=== PATIENT | male | born 1970 | race Caucasian/White ===

== ENCOUNTER 2018-09-30 13:26 | Inpatient (IN) | payer OTHER ==
[2018-09-30] MEDS ORDERED: Nitroglycerin 50 MG/250 ML BOT 250 ML ONE (13:59)
--- NOTE | 2018-09-30 14:07 | RAD ---
SINGLE VIEW OF THE CHEST: COMPARISON: None. HISTORY: Chest pain. History of atrial fibrillation. FINDINGS: Single view of the chest shows a normal sized cardiomediastinal silhouette. There is no evidence of c onsolidation, mass, or pleural effusion. The bones are unremarkable. IMPRESSION: No evidence of acute cardiopulmonary disease. POS: C
[2018-09-30 14:26] LABS: #Eosinphils 0.1 thou/uL (0.0-0.7); #Lymphocytes 2.3 thou/uL (1.20-3.40); #Monocytes 0.7 thou/uL (0.11-0.59); #Neutrophils 2.4 thou/uL (1.40-6.50); %Basophils 0.5 % (0.0-1.0); %Eosinophils 1.1 % (0.0-10.0); %Lymphocytes 42.3 % (21.0-51.0); %Monocytes 12.3 % (0.0-10.0); %Neutrophils 43.7 % (42.0-75.0); Hemoglobin 16.1 g/dL (14.0-18.0); Mean Corpuscular HGB CONC 32.8 g/dL (32.0-36.0); Mean Corpuscular Hemoglobin 30.7 pg (27.0-31.0); Mean Corpuscular Volume 93.5 fL (78.0-98.0); Mean Platelet Volume 8.5 fL (7.4-10.4); Platelet Count 232 thou/uL (130-400); RBC Distribution Width 12.1 % (11.5-14.5); Red Blood Cell (RBC) Count 5.26 mill/uL (4.70-6.10); White Blood Cell (WBC) Count 5.4 thou/uL (4.8-10.8)
[2018-09-30] MEDS ORDERED: Morphine 4 MG/ML VIAL ONE (14:32)
[2018-09-30 14:41] LABS: ALT (SGPT) 39 U/L (8-55); AST (SGOT) 25 U/L (5-34); Albumin 4.4 g/dL (3.5-5.0); Alkaline Phosphatase 84 U/L (40-150); Anion Gap 14 mmol/L (10-20); BUN (Urea Nitrogen) 11 mg/dL (8.9-20.6); Bilirubin, Total 1.6 mg/dL (0.2-1.2); Calc. Creatinine Clearance 0 mL/min (70-130); Calcium 9.9 mg/dL (7.8-10.44); Carbon Dioxide 24 mmol/L (22-29); Chloride 108 mmol/L (98-107); Estimated GFR-MDRD Greater than 90; Glucose 91 mg/dL (70-105); Potassium 4.1 mmol/L (3.5-5.1); Protein, Total 7.4 g/dL (6.0-8.3); Sodium 142 mmol/L (136-145)
[2018-09-30 17:56] LABS: Troponin I Less than 0.010 ng/mL (< 0.028)
[2018-09-30] MEDS ORDERED: hydrALAZINE 20 MG/ML VIAL ONE (18:44)
[2018-09-30] MEDS ORDERED: Ondansetron PF 4 MG/2 ML Vial IVP PRN (18:49)
[2018-09-30] MEDS ORDERED: Acetaminophen 650 MG Suppository PR PRN (18:49)
[2018-09-30] MEDS ORDERED: Bisacodyl 5 MG TAB PO PRN (18:49)
[2018-09-30] MEDS ORDERED: Acetaminophen 325 MG TAB PO PRN (18:49)
[2018-09-30] MEDS ORDERED: hydrALAZINE 20 MG/ML VIAL SLOW IVP PRN (18:52)
[2018-09-30] MEDS ORDERED: Labetalol HCl 100 MG/20 ML VIAL SLOW IVP PRN (18:53)
[2018-09-30] MEDS ORDERED: Morphine 4 MG/ML VIAL SLOW IVP PRN (18:53)
[2018-09-30] MEDS ORDERED: Aspirin 325 MG TAB PO SCH (19:00)
[2018-09-30] MEDS ORDERED: HumaLOG 300 UNITS/3 ML VIAL SC PRN (19:07)
[2018-09-30] MEDS ORDERED: Dextrose 50% Abboject 50 ML SYRINGE SLOW IVP PRN (19:07)
[2018-09-30] MEDS ORDERED: Dextrose 5% in Water 1,000 ML IV PRN (19:07)
[2018-09-30] MEDS ORDERED: cloNIDine 0.1 MG TAB PO PRN (19:26)
[2018-09-30] MEDS ORDERED: cloNIDine 0.1 MG TAB ONE (19:30)
[2018-09-30] MEDS: cloNIDine 0.2 MG TAB PO SCH (19:37)
--- NOTE | 2018-09-30 19:39 | HP ---
PRIMARY CARE PROVIDER: None. CHIEF COMPLAINT: Chest pain. HISTORY OF PRESENT ILLNESS: Mr. Shi is a pleasant 48-year-old gentleman, who was seen at [facility] on September 30, 2018. He is a jail inmate. He reports that he had chest pain 3 weeks ago. The pain was in the retrosternal region. He was supposed to go for a stress test and echocardiogram. He was supposed to stop diltiazem, but apparently diltiazem was not stopped, therefore he could not go for the test. He reports that he had recurrence of the pain around 7 a.m. today. He describes it as retrosternal, sharp, radiating to his neck, 7/10 at its worst, accompanied by lightheadedness, shortness of breath, and diaphoresis. He denies any abdominal pain. He endorses nausea. He denies any cough or fever. REVIEW OF SYSTEMS: All other systems reviewed and found to be negative. PAST MEDICAL HISTORY: Myocardial infarction, atrial fibrillation, diabetes mellitus type 2, kidney nodules, and hepatitis C. PAST SURGICAL HISTORY: Left elbow surgery, left shoulder surgery, and right knee surgery. SOCIAL HISTORY: The patient reports using methamphetamines and cocaine in the past, but stopped their use. He is an ex-smoker. He denies alcohol use. FAMILY HISTORY: Significant for myocardial infarction in both parents. His brother had coronary artery bypass graft. ALLERGIES: DEMEROL. CURRENT MEDICATIONS: 1. Allopurinol 300 mg daily. 2. Aspirin 81 mg daily. 3. Atorvastatin 20 mg daily. 4. Diltiazem 180 mg daily. 5. Divalproex 500 mg 2 times a day. 6. Furosemide 40 mg 2 times a day. 7. Isosorbide mononitrate 30 mg daily. 8. Lisinopril 40 mg daily. 9. Loratadine 10 mg daily. 10. Nitroglycerin 0.2 mg/hour transdermal patch. 11. Artificial Tears 2 drops to each eye once daily. 12. Potassium chloride 20 mEq daily. 13. Terazosin 2 mg daily. 14. Hydralazine 25 mg 3 times a day. 15. Metformin 500 mg 2 times a day. 16. Nitroglycerin p.r.n. PHYSICAL EXAMINATION: GENERAL: On examination, Mr. Shi is awake and alert, in mild distress. He is obese. VITAL SIGNS: Blood pressure is 162/109, pulse 75, respiratory rate 21, and oxygen saturation 95% on room air. He is afebrile. EYES: No scleral icterus. No conjunctival pallor. ENT: Moist mucosal membranes. No oropharyngeal erythema or exudates. NECK: Supple and nontender. Trachea is midline. RESPIRATORY: Accessory muscles of breathing are not active. Chest wall movements are symmetric bilaterally. Lungs are clear to auscultation without wheeze, rhonchi, or crepitations. CARDIOVASCULAR: S1 and S2 are heard, regular. Peripheral pulses palpable. No carotid bruit. No pericardial rub. ABDOMEN: Distended and nontender. Bowel sounds heard. No hepatomegaly. No splenomegaly. NEUROLOGIC: Cranial nerves 2 through 12 are intact. He has right upper extremity tremor. MUSCULOSKELETAL: Power is 5/5 in all 4 extremities. SKIN: Multiple tattoos. LYMPHATIC: No cervical lymphadenopathy. PSYCHIATRIC: Normal mood. Normal affect. The patient is oriented to person, place, and time. LABORATORY DATA: Mr. Shi's labs and investigations were reviewed. I reviewed his electrocardiogram, which shows normal sinus rhythm, no ST changes to suggest an acute coronary syndrome. I also reviewed his chest x-ray, which does not show any pulmonary infiltrates. He has an unremarkable CBC. D-dimer less than 0.27. Elevated total bilirubin of 1.6, elevated chloride of 108, otherwise unremarkable comprehensive metabolic profile. Troponin-I that is negative x2. ASSESSMENT AND PLAN: Mr. Shi is a pleasant 48-year-old gentleman, who was seen at [facility] on September 30, 2018. His problem list includes: 1. Chest pain: Mr. Shi is presenting with chest pain. He has significant risk factors for coronary artery disease. He will be admitted to the hospital for further management. We will check stress test. We will also check urine drug screen to look for any recreational drugs. Pulmonary embolism has been ruled out with negative D-dimer. 2. Hypertensive urgency: Mr. Shi is presenting with hypertensive urgency. When he initially presented to the emergency room, his blood pressure was 202/124. We will start him on p.r.n. medications to bring the blood pressure down. 3. Atrial fibrillation: Mr. Shi has a history of atrial fibrillation. He is currently in normal sinus rhythm. We will continue home medications. 4. Diabetes mellitus type 2: We will start Accu-Cheks and insulin sliding scale. Many thanks for allowing me to participate in your patient's care. Please feel free to contact me with any questions or concerns. LEVEL OF RISK: High. LEVEL OF COMPLEXITY: High. Job ID: [id number]
[2018-09-30 20:54] LABS: Troponin I Less than 0.010 ng/mL (< 0.028)
[2018-09-30 23:09] VITALS: BMI 43.9
[2018-09-30 23:12] LABS: Amphetamine Not Detected (NotDetected); Barbiturates Screen Not Detected (NotDetected); Benzodiazepine Screen Not Detected (NotDetected); Cocaine Metabolite Screen Not Detected (NotDetected); Medtox Control Line Valid? VALID (VALID); Medtox Reader # READER 1; Methadone Not Detected (NotDetected); Methamphetamine Not Detected (NotDetected); Opiate Screen Detected (NotDetected); Oxycodone Screen Not Detected (NotDetected); Phencyclidine (PCP) Not Detected (NotDetected); THC/Cannabinoid Screen Not Detected (NotDetected); Tricyclic Screen Not Detected (NotDetected)
[2018-10-01 03:37] LABS: #Eosinphils 0.1 thou/uL (0.0-0.7); #Lymphocytes 2.2 thou/uL (1.20-3.40); #Neutrophils 5.7 thou/uL (1.40-6.50); %Basophils 0.2 % (0.0-1.0); %Eosinophils 0.6 % (0.0-10.0); %Lymphocytes 24.6 % (21.0-51.0); %Monocytes 11.5 % (0.0-10.0); %Neutrophils 63.1 % (42.0-75.0); Hemoglobin 15.2 g/dL (14.0-18.0); Mean Corpuscular HGB CONC 32.5 g/dL (32.0-36.0); Mean Corpuscular Hemoglobin 30.6 pg (27.0-31.0); Mean Corpuscular Volume 94.1 fL (78.0-98.0); Mean Platelet Volume 8.3 fL (7.4-10.4); Platelet Count 218 thou/uL (130-400); RBC Distribution Width 12.3 % (11.5-14.5); Red Blood Cell (RBC) Count 4.98 mill/uL (4.70-6.10)
[2018-10-01 04:00] LABS: Anion Gap 10 mmol/L (10-20); BUN (Urea Nitrogen) 11 mg/dL (8.9-20.6); Calc. Creatinine Clearance 230 mL/min (70-130); Calcium 9.3 mg/dL (7.8-10.44); Carbon Dioxide 27 mmol/L (22-29); Chloride 106 mmol/L (98-107); Estimated GFR-MDRD Greater than 90; Glucose 108 mg/dL (70-105); Potassium 3.9 mmol/L (3.5-5.1); Sodium 139 mmol/L (136-145)
[2018-10-01] MEDS ORDERED: cloNIDine 0.1 MG TAB ONE (04:18)
[2018-10-01] MEDS ORDERED: hydrALAZINE 20 MG/ML VIAL ONE (04:18)
[2018-10-01] MEDS: Nitroglycerin 0.4 MG TAB (25 Tab Bottle) PO PRN ×2 (04:18→04:23)
[2018-10-01] MEDS ORDERED: Morphine 4 MG/ML VIAL ONE (04:18)
[2018-10-01] MEDS ORDERED: Aspirin 325 mg Enteric Coated Tablet PO SCH (09:00)
[2018-10-01] MEDS ORDERED: Enoxaparin Sodium 40 MG/0.4 ML SYRINGE SC SCH (09:00)
[2018-10-01] MEDS ORDERED: Sodium Chloride 0.9% 10 ML ONE (09:08)
[2018-10-01] MEDS: cloNIDine 0.2 MG TAB PO SCH (09:22)
--- NOTE | 2018-10-01 10:12 | PDOC.PN ---
- Subjective Encounter Start Date: 10/01/18 Encounter Start Time: 11:50 Subjective: Patient without further chest pain. He has had some bradycardic episodes, -: but asymptomatic into the 50s. Stress test done this morning, report -: pending. - Objective MAR Reviewed: Yes Vital Signs & Weight: Vital Signs (12 hours) Temp Pulse Resp BP BP Pulse Ox 10/01/18 09:55 97 10/01/18 09:22 162/88 H 10/01/18 00:45 97.8 F 75 20 163/108 H 97 Weight Weight 341 lb 14.991 oz Result Diagrams: 10/01/18 03:23 10/01/18 03:23 Additional Labs: Accuchecks 10/01/18 09/30/18 08:11 22:46 POC Glucose 106 106 Phys Exam - Physical Examination Constitutional: NAD HEENT: moist MMs Respiratory: no wheezing, no rales, no rhonchi Cardiovascular: RRR, no significant murmur Gastrointestinal: soft, positive bowel sounds Musculoskeletal: no edema Neurological: non-focal, moves all 4 limbs Psychiatric: normal affect, A&O x 3 Dx/Plan (1) Chest pain Code(s): R07.9 - CHEST PAIN, UNSPECIFIED Status: Resolved (2) CAD (coronary artery disease) Code(s): I25.10 - ATHSCL HEART DISEASE OF [place] CORONARY ARTERY W/O ANG PCTRS Status: Chronic Qualifiers: Coronary Disease-Associated Artery/Lesion type: [place] artery Comment: by history (3) Paroxysmal atrial fibrillation Code(s): I48.0 - PAROXYSMAL ATRIAL FIBRILLATION Status: Chronic Comment: currently in NSR (4) Diabetes mellitus type 2 in obese Code(s): E11.69 - TYPE 2 DIABETES MELLITUS WITH OTHER SPECIFIED COMPLICATION; E66.9 - OBESITY, UNSPECIFIED Status: Chronic Comment: FSBS achs and ISS as needed (5) Hepatitis C Code(s): B19.20 - UNSPECIFIED VIRAL HEPATITIS C WITHOUT HEPATIC COMA Status: Chronic Qualifiers: Viral hepatitis chronicity: chronic (6) Hypertensive urgency Code(s): I16.0 - HYPERTENSIVE URGENCY Status: Acute Comment: BP improved in hospital, still running high - Plan cont current plan of care stress test today, cardiology if positive -: Will need to stop diltiazem due to bradycardia -: Will have to increase other BP meds. * . - Discharge Day Encounter end time: 12:00
--- NOTE | 2018-10-01 15:00 | NM ---
STRESS ONLY MYOCARDIAL PERFUSION EVALUATION: INDICATIONS: Chest pain. RADIOPHARMACEUTICAL: Technetium 99m sestamibi 33 millicuries IV with stress. FINDINGS: There is mild left ventricular dilatation. There is no myocardial perfusion defect. There is normal wall motion and thickening. Estimated LVEF is 80%. IMPRESSION: 1. Normal stress myocardial perfusion evaluation. 2. Mild left ventricular dilatation. POS: [facility]
[2018-10-01] MEDS ORDERED: Regadenoson 0.4 MG/5 ML SYRINGE ONE (16:04)
[2018-10-01 16:12] VITALS: BP 127/72; TEMP 96.7
--- NOTE | 2018-10-02 04:25 | DIS ---
DATE OF ADMISSION: 09/30/2018 DATE OF DISCHARGE: 10/01/2018 PRIMARY CARE PHYSICIAN: The patient is an inmate. REASON FOR ADMISSION: Chest pain. DIAGNOSES AT DISCHARGE: 1. Chest pain, resolved, noncardiac. 2. History of coronary artery disease. 3. Paroxysmal atrial fibrillation, currently in normal sinus rhythm with some bradycardia. 4. Diabetes mellitus type 2. 5. Hepatitis C. 6. Hypertensive urgency, resolved. PROCEDURES: Nuclear medicine stress test showing an ejection fraction of 80%. No evidence of ischemia. CONSULTATIONS: None. SUMMARY OF HOSPITAL COURSE: This is a 48-year-old male inmate with a history of previous myocardial infarction, atrial fibrillation, diabetes mellitus type 2, and hepatitis C. He reportedly had some chest pain about 3 weeks ago and on the day of admission, he had substernal chest pain. He was supposed to get a stress test and echocardiogram from [facility], however for some reason, his diltiazem was not held and so he was unable to get it. The patient was admitted to the hospital. He did have severely elevated blood pressures that improves, although he remained elevated during hospitalization. He remained chest pain-free during hospitalization. He had a nuclear medicine stress test, which showed normal ejection fraction and negative for any evidence of ischemia. The patient did have some bradycardia during the hospitalization down to 50s, but this was asymptomatic. He is being discharged back to [facility]. DISCHARGE MANAGEMENT: Discharged back to [facility]. ACTIVITY: As tolerated. DIET: Healthy heart low-sodium diet. MEDICATIONS: 1. Hydralazine increased to 50 mg 3 times a day. 2. Omeprazole 20 mg daily. 3. Resume all other home medicines, allopurinol 300 mg at night. 4. Aspirin 81 mg daily. 5. Atorvastatin 20 mg at night. 6. Depakote ER 500 mg twice a day. 7. Furosemide 40 mg twice a day. 8. Isosorbide mononitrate 30 mg daily. 9. Lisinopril 40 mg daily. 10. Loratadine 10 mg daily. 11. Metformin 500 mg twice a day. 12. Nitroglycerin patch. 13. Artificial Tears as needed. 14. Potassium chloride 20 mEq daily. 15. Terazosin 2 mg at night. 16. The patient is to stop his diltiazem. The patient is to follow up with the [facility]. Job ID: [id number]
== END 2018-10-01 20:16 | DRG 313 ==
LOC: ERS 13:26 → EEVIPCON 13:26 → ERHOLD 15:54 → 2NO 10-01 08:12
PROVIDERS: ADMIT Internal Medicine; ATTEND Internal Medicine
DX: R07.9 Chest pain, unspecified (principal); E11.9 Type 2 diabetes mellitus without complications; B19.20 Unspecified viral hepatitis C without hepatic coma; I16.0 Hypertensive urgency; I25.10 Atherosclerotic heart disease of native coronary artery without angina pectoris; I48.0 Paroxysmal atrial fibrillation; I25.2 Old myocardial infarction; Z98.890 Other specified postprocedural states; Z87.891 Personal history of nicotine dependence; Z79.82 Long term (current) use of aspirin; Z79.84 Long term (current) use of oral hypoglycemic drugs; Z79.899 Other long term (current) drug therapy
CPT/HCPCS: 36415; 36416; 71045; 78452; 80048; 80053; 80306; 84484; 85025; 85379; 93005; 93017; 94760; A9500; J0360; J1650; J2270; J2785; J3490

== ENCOUNTER 2018-10-31 08:01 | Emergency (ER) | payer OTHER ==
[2018-10-31 08:36] LABS: Hemoglobin 16.3 g/dL (14.0-18.0); Mean Corpuscular HGB CONC 34.8 g/dL (32.0-36.0); Mean Corpuscular Hemoglobin 31.6 pg (27.0-31.0); Mean Corpuscular Volume 90.9 fL (78.0-98.0); Mean Platelet Volume 8.8 fL (7.4-10.4); Platelet Count 205 thou/uL (130-400); RBC Distribution Width 11.5 % (11.5-14.5); Red Blood Cell (RBC) Count 5.17 mill/uL (4.70-6.10); White Blood Cell (WBC) Count 5.9 thou/uL (4.8-10.8)
--- NOTE | 2018-10-31 08:37 | RAD ---
EXAM: Portable chest PROVIDED CLINICAL HISTORY: Chest pain COMPARISON: 09/30/2018 FINDINGS: Cardiac and mediastinal silhouette is within normal limits. No focal consolidation, pleural fluid or pneumothorax evident. IMPRESSION: No evidence for an acute cardiopulmonary process.
[2018-10-31 08:53] LABS: ALT (SGPT) 55 U/L (8-55); AST (SGOT) 43 U/L (5-34); Albumin 4.1 g/dL (3.5-5.0); Alkaline Phosphatase 82 U/L (40-150); Anion Gap 13 mmol/L (10-20); BUN (Urea Nitrogen) 9 mg/dL (8.9-20.6); Bilirubin, Total 0.9 mg/dL (0.2-1.2); CK (CPK) 124 U/L (30-200); Calc. Creatinine Clearance 0 mL/min (70-130); Calcium 9.4 mg/dL (7.8-10.44); Carbon Dioxide 27 mmol/L (22-29); Chloride 106 mmol/L (98-107); Estimated GFR-MDRD 84; Globulin 3.3 g/dL (2.4-3.5); Glucose 78 mg/dL (70-105); Lipase 15 U/L (8-78); Potassium 4.7 mmol/L (3.5-5.1); Protein, Total 7.4 g/dL (6.0-8.3); Sodium 141 mmol/L (136-145)
[2018-10-31] MEDS ORDERED: Nitroglycerin 0.4 MG TAB 1 EACH ONE (09:17)
[2018-10-31] MEDS ORDERED: Ondansetron ODT 4 MG TAB ONE (11:19)
== END 2018-10-31 12:03 | disposition short-term general hospital (02) ==
LOC: ERS 08:01 → EEVIPCON 08:01 → ERS 12:03
DX: R07.9 Chest pain, unspecified (principal); I25.10 Atherosclerotic heart disease of native coronary artery without angina pectoris; I48.91 Unspecified atrial fibrillation; F32.9 Major depressive disorder, single episode, unspecified; Z87.891 Personal history of nicotine dependence; Z79.899 Other long term (current) drug therapy; Z79.82 Long term (current) use of aspirin
CPT/HCPCS: 36415; 71045; 80053; 82550; 83690; 83880; 84484; 85025; 93005; Q0162

== ENCOUNTER 2019-01-24 17:20 | Emergency (ER) | payer OTHER ==
[2019-01-24 17:53] LABS: #Eosinphils 0.1 thou/uL (0.0-0.7); #Lymphocytes 2.6 thou/uL (1.20-3.40); #Monocytes 0.9 thou/uL (0.11-0.59); #Neutrophils 3.2 thou/uL (1.40-6.50); %Basophils 0.2 % (0.0-1.0); %Eosinophils 1.6 % (0.0-10.0); %Lymphocytes 38.7 % (21.0-51.0); %Monocytes 12.9 % (0.0-10.0); %Neutrophils 46.5 % (42.0-75.0); Hemoglobin 15.4 g/dL (14.0-18.0); Mean Corpuscular HGB CONC 34.5 g/dL (32.0-36.0); Mean Corpuscular Hemoglobin 31.3 pg (27.0-31.0); Mean Corpuscular Volume 90.8 fL (78.0-98.0); Mean Platelet Volume 7.9 fL (7.4-10.4); Platelet Count 253 thou/uL (130-400); RBC Distribution Width 11.3 % (11.5-14.5); Red Blood Cell (RBC) Count 4.91 mill/uL (4.70-6.10); White Blood Cell (WBC) Count 6.8 thou/uL (4.8-10.8)
--- NOTE | 2019-01-24 18:20 | RAD ---
Exam:2 views left elbow HISTORY: Fall. Pain. COMPARISON: None FINDINGS: No joint effusion. No fracture. No malalignment. IMPRESSION: No fracture.
--- NOTE | 2019-01-24 18:21 | RAD ---
Exam: Chest one view HISTORY:Chest pain Comparison: 10/31/2018 FINDINGS: Cardiac silhouette: Normal Pulmonary vessels: Normal Costophrenic angles: Clear LUNGS: No masses or consolidation. Pneumothorax: None Osseous abnormalities: None IMPRESSION: No acute cardiopulmonary process.
[2019-01-24] MEDS ORDERED: hydrALAZINE 25 MG TAB PO SCH (18:30)
[2019-01-24 18:32] LABS: ALT (SGPT) 37 U/L (8-55); AST (SGOT) 29 U/L (5-34); Alkaline Phosphatase 79 U/L (40-150); Anion Gap 13 mmol/L (10-20); BUN (Urea Nitrogen) 10 mg/dL (8.9-20.6); Bilirubin, Total 0.5 mg/dL (0.2-1.2); CK (CPK) 108 U/L (30-200); Calc. Creatinine Clearance 0 mL/min (70-130); Calcium 9.1 mg/dL (7.8-10.44); Carbon Dioxide 24 mmol/L (22-29); Chloride 107 mmol/L (98-107); Estimated GFR-MDRD Greater than 90; Globulin 2.7 g/dL (2.4-3.5); Glucose 87 mg/dL (70-105); Potassium 3.9 mmol/L (3.5-5.1); Protein, Total 6.7 g/dL (6.0-8.3); Sodium 140 mmol/L (136-145)
[2019-01-24] MEDS ORDERED: Acetaminophen 500 MG TAB ONE (19:22)
== END 2019-01-24 22:15 | disposition short-term general hospital (02) ==
LOC: ERS 17:20
DX: R07.2 Precordial pain (principal); M25.522 Pain in left elbow; I11.0 Hypertensive heart disease with heart failure; I50.9 Heart failure, unspecified; E11.9 Type 2 diabetes mellitus without complications; F32.9 Major depressive disorder, single episode, unspecified; I25.2 Old myocardial infarction; I48.91 Unspecified atrial fibrillation; F17.210 Nicotine dependence, cigarettes, uncomplicated; Z86.19 Personal history of other infectious and parasitic diseases; Z79.01 Long term (current) use of anticoagulants; Z79.82 Long term (current) use of aspirin; Z79.84 Long term (current) use of oral hypoglycemic drugs; Z79.899 Other long term (current) drug therapy; W19.XXXA Unspecified fall, initial encounter
CPT/HCPCS: 36415; 71045; 80053; 82550; 84484; 85025; 93005

== ENCOUNTER 2019-03-15 08:58 | Inpatient (IN) | payer OTHER ==
[2019-03-15] MEDS ORDERED: Piperacillin/Tazobactam 3.375 GM VIAL ONE (10:20)
[2019-03-15] MEDS ORDERED: Acetaminophen 325 MG TAB PO PRN (11:58)
[2019-03-15] MEDS ORDERED: Ondansetron PF 4 MG/2 ML Vial IVP PRN ×2 (11:58→12:11)
[2019-03-15] MEDS ORDERED: Ondansetron ODT 4 MG TAB SL PRN (11:58)
[2019-03-15] MEDS ORDERED: Diabetic Tussin 200 MG/10 ML UDCUP PO PRN (12:11)
[2019-03-15] MEDS ORDERED: Loperamide HCl 2 MG CAP PO PRN (12:11)
[2019-03-15] MEDS ORDERED: HumaLOG 300 UNITS/3 ML VIAL SC PRN ×2 (12:11)
[2019-03-15] MEDS ORDERED: Calcium Carbonate 500 MG ChewTAB PO PRN (12:11)
[2019-03-15] MEDS ORDERED: hydrALAZINE 20 MG/ML VIAL SLOW IVP PRN (12:11)
[2019-03-15] MEDS ORDERED: Dextrose 5% in Water 1,000 ML IV PRN (12:11)
[2019-03-15] MEDS ORDERED: Bisacodyl 10 MG SUPP PR PRN (12:11)
[2019-03-15] MEDS ORDERED: Artificial Tears 18 DROP/0.9 ML EA EYE PRN (12:11)
[2019-03-15] MEDS ORDERED: Loratadine 10 MG TAB PO PRN (12:11)
[2019-03-15] MEDS ORDERED: Zolpidem Tartrate 5 MG TAB PO PRN (12:11)
[2019-03-15] MEDS ORDERED: Sodium Chloride 0.65% Nasal 44 ML BOT EA NARE PRN (12:11)
[2019-03-15] MEDS ORDERED: Cepastat Lozenges 1 LOZ PO PRN (12:11)
[2019-03-15] MEDS ORDERED: Dextrose 50% Abboject 50 ML SYRINGE SLOW IVP PRN (12:11)
[2019-03-15] MEDS ORDERED: Senokot S 8.6-50 MG TAB PO PRN (12:11)
[2019-03-15] MEDS ORDERED: Nitroglycerin 0.4 MG TAB (25 Tab Bottle) SL PRN (12:11)
[2019-03-15] MEDS ORDERED: Ondansetron ODT 4 MG TAB PO PRN (12:11)
[2019-03-15 12:34] VITALS: BMI 41.4
--- NOTE | 2019-03-15 12:34 | HP ---
PRIMARY CARE PHYSICIAN: [facility] Call admission. REASON FOR ADMISSION: Transfer from [facility] for cellulitis of right upper thigh and groin. HISTORY OF PRESENT ILLNESS: A 49-year-old prisoner who has morbid obesity, hypertension, dyslipidemia, chronic diastolic heart failure as well as underlying diabetes type 2, who noticed pain and swelling in his right groin and right upper thigh. The patient noticed redness, warmth, and significant tenderness. His pain intensity is about 9/10. He was having subjective fever with chills, but he was not able to measure his temperature. He was not tolerating his pain and that is why today he requested to go to the hospital. He was evaluated at [facility]. There was no bed available at [facility] and that is why this patient was transferred to our hospital for further treatment. The patient was treated with clindamycin. The patient had CT scan of pelvis which also showed cellulitis without any abscess. He was hemodynamically stable in the emergency room. The patient will require admission to medical floor for IV antibiotic therapy. REVIEW OF SYSTEMS: As dictated course in short review of systems. Please see my HPI for pertinent positives and negatives. All other review of systems reviewed and negative except as mentioned in HPI. PAST MEDICAL HISTORY: Morbid obesity, chronic diastolic heart failure, paroxysmal atrial fibrillation, history of MS, diabetes type 2, gastroesophageal reflux disease, history of hepatitis C, hypertension, dyslipidemia, cervical spondylosis, ankylosing spondylitis, chronic radicular pain, chronic low back pain, sleep apnea, stasis dermatitis, gout. PAST SURGICAL HISTORY: Left elbow surgery, left shoulder surgery, right knee surgery, cardiac catheterization. PAST PSYCHIATRIC HISTORY: Anxiety and depression. SOCIAL HISTORY: The patient is from [facility]. He is a former drug abuser. He abused methamphetamines. He currently denies any alcohol or other illicit drug abuse. He denies any smoking. FAMILY HISTORY: Diabetes, hypertension, heart disease runs among several family members. ALLERGIES: DEMEROL, NORTRIPTYLINE. CURRENT HOME MEDICATIONS: 1. Cymbalta 30 mg daily. 2. Allopurinol 300 mg p.o. daily. 3. Aspirin 81 mg daily. 4. Lipitor 40 mg p.o. daily. 5. Lasix 40 mg twice daily. 6. Hydralazine 50 mg three times daily. 7. Imdur 30 mg daily. 8. Lisinopril 40 mg daily. 9. Metformin 500 mg twice daily. 10. Nitroglycerin 0.4 mg sublingual p.r.n. 11. Omeprazole 20 mg daily. 12. Potassium chloride 20 mEq p.o. daily. 13. Terazosin 2 mg p.o. daily. EMERGENCY ROOM COURSE: The patient has received Zosyn and clindamycin. PHYSICAL EXAMINATION: VITAL SIGNS: On arrival, blood pressure 132/82, pulse 80, respiratory rate 18, temperature 98.2, saturation 96% on room air, weight 155 kg. GENERAL: The patient is currently alert, awake, follows command. No acute distress. HEAD: Normocephalic, atraumatic. EYES: Pupils round, reactive to light. Extraocular muscle intact. ENT: Oropharynx within normal limits. Moist mucous membranes. No oral lesion. No pharyngeal erythema. No exudate. NECK: Supple. No JVD. No thyromegaly. No carotid bruit. No jugular venous distention. LUNGS: Clear to auscultation without any rhonchi or rales. CARDIAC: S1, S2 appears regular without any significant murmur, though morbid obesity limiting examination. ABDOMEN: Morbid obesity limiting examination. No peritoneal sign. No guarding. No rigidity. No rebound. No suprapubic tenderness. BACK: Unremarkable. No CVA tenderness. EXTREMITIES: Upper extremity, passive movement of all joints are normal. Lower extremity, no edema. Good distal pulsation. Chronic skin changes noted. PSYCHIATRIC: Normal affect. SKIN: The patient does have erythema and tenderness from scrotum to right inner thigh as well as buttock posterior aspect. No fluctuance. No abscess noted. SIGNIFICANT LABORATORY DATA: WBC 11.6, hemoglobin 16.3, platelet 234. BMP, sodium 142, potassium 4.0, chloride 103, carbon dioxide 28, BUN 12, creatinine 0.90, glucose is 101, calcium 9.9, and lactic acid 1.3. LFT, AST 27, ALT 34, alkaline phosphatase 87, albumin 4.4. Pelvis CT scan done at [facility] which showed no evidence of acute process. ASSESSMENT AND PLAN: 1. Right lower extremity (right upper thigh as well as right buttock and groin) cellulitis. This patient has underlying diabetes and he has significant tenderness, erythema, and warmth. He will require antibiotic therapy. We will continue to admit him in the hospital and treat him with vancomycin and Zosyn. He will require at least 2 to 3 days antibiotic therapy. We will monitor clinical response and follow up on culture result. His pain will be controlled with morphine p.r.n. basis. 2. Chronic diastolic heart failure. The patient will continue his home medication with Lasix 40 mg twice daily. Currently, the patient is euvolemic. 3. Hypertension, currently well controlled. We will continue lisinopril 40 mg daily, Imdur 30 mg daily, hydralazine 50 mg p.o. three times daily. 4. Anxiety and depression. We will continue Cymbalta 30 mg p.o. daily. 5. Gout. We will continue allopurinol 300 mg p.o. daily. 6. Coronary artery disease. We will continue aspirin 81 mg p.o. daily, statin therapy, Imdur 30 mg p.o. daily. 7. Diabetes type 2. We will continue insulin as per sliding scale. Diabetic diet will be given. We will also continue metformin 500 mg p.o. twice daily. 8. Gastroesophageal reflux disease. We will continue Protonix 40 mg p.o. daily. 9. Morbid obesity with sleep apnea. Dietary education given. Weight loss education given. Healthy lifestyle measure discussed with the patient. 10. Deep venous thrombosis prophylaxis, Lovenox 40 mg subcu daily. 11. Gastrointestinal prophylaxis, Protonix 40 mg p.o. daily. CODE STATUS: The patient is full code. The patient does not have any surrogate decision maker. DISPOSITION PLAN: Based on clinical course, we are expecting the patient's stay in hospital more than 2 midnights. Plan of care discussed with the patient in detail. Job ID: [id number]
[2019-03-15] MEDS: HYDROcodone/Acetaminophen 5/325 mg Tablet PO PRN ×2 (13:03→16:53)
[2019-03-15] MEDS ORDERED: Vancomycin HCl 2.5 GM in Sodium Chloride 0.9% 500 ML IVPB SCH (14:00)
[2019-03-15] MEDS: Furosemide 20 MG TAB PO SCH (14:20)
[2019-03-15 14:40] LABS: Bacteria/HPF None Seen HPF (None Seen); Bilirubin Negative (Negative); Blood, Urine Negative (Negative); Clarity Clear (Clear); Glucose, Urine (Dipstick) Normal (Negative); Leukocyte Negative Leu/uL (Negative); Nitrite Negative (Negative); Protein, Urine (Dipstick) Negative (Neg-Trace); RBC/HPF 0-3 HPF (0-3); Squamous Epithelial None Seen HPF (0-3); Urobilinogen Normal mg/dL (Less than 2); WBC/HPF 0-3 HPF (0-3)
[2019-03-15] MEDS: metFORMIN 500 MG TAB PO SCH (16:53)
[2019-03-15] MEDS: hydrALAZINE 25 MG TAB PO SCH ×2 (16:54→20:03)
[2019-03-15] MEDS: Piperacillin/Tazobactam 3.375 GM in Sodium Chloride 0.9% 100 ML IVPB SCH (19:53)
[2019-03-15] MEDS: Atorvastatin Calcium 40 MG TAB PO SCH (20:02)
[2019-03-15] MEDS: Terazosin HCl 1 MG CAP PO SCH (20:08)
[2019-03-15] MEDS: Morphine 2 MG/ML SYRINGE IVP PRN (20:09)
[2019-03-15] MEDS: Vancomycin HCl 1.75 GM in Sodium Chloride 0.9% 500 ML IVPB SCH (21:53)
[2019-03-16] MEDS: Piperacillin/Tazobactam 3.375 GM in Sodium Chloride 0.9% 100 ML IVPB SCH ×5 (01:08→23:12)
[2019-03-16] MEDS: HYDROcodone/Acetaminophen 5/325 mg Tablet PO PRN ×3 (01:10→20:46)
[2019-03-16] MEDS: Vancomycin HCl 1.75 GM in Sodium Chloride 0.9% 500 ML IVPB SCH ×2 (05:24→14:45)
[2019-03-16 06:38] LABS: #Eosinphils 0.2 thou/uL (0.0-0.7); #Lymphocytes 1.7 thou/uL (1.20-3.40); #Monocytes 1.1 thou/uL (0.11-0.59); #Neutrophils 6.8 thou/uL (1.40-6.50); %Basophils 0.1 % (0.0-1.0); %Eosinophils 1.7 % (0.0-10.0); %Lymphocytes 17.7 % (21.0-51.0); %Monocytes 11.3 % (0.0-10.0); %Neutrophils 69.2 % (42.0-75.0); Hemoglobin 15.5 g/dL (14.0-18.0); Mean Corpuscular HGB CONC 33.8 g/dL (32.0-36.0); Mean Corpuscular Volume 91.7 fL (78.0-98.0); Mean Platelet Volume 8.2 fL (7.4-10.4); Platelet Count 204 thou/uL (130-400); RBC Distribution Width 11.8 % (11.5-14.5); Red Blood Cell (RBC) Count 5.01 mill/uL (4.70-6.10); White Blood Cell (WBC) Count 9.8 thou/uL (4.8-10.8)
[2019-03-16 06:58] LABS: ALT (SGPT) 27 U/L (8-55); AST (SGOT) 18 U/L (5-34); Albumin 3.7 g/dL (3.5-5.0); Alkaline Phosphatase 76 U/L (40-150); Anion Gap 14 mmol/L (10-20); BUN (Urea Nitrogen) 16 mg/dL (8.9-20.6); Bilirubin, Total 1.4 mg/dL (0.2-1.2); Calc. Creatinine Clearance 167 mL/min (70-130); Calcium 8.9 mg/dL (7.8-10.44); Carbon Dioxide 27 mmol/L (22-29); Chloride 102 mmol/L (98-107); Estimated GFR-MDRD 67; Glucose 112 mg/dL (70-105); Potassium 3.5 mmol/L (3.5-5.1); Protein, Total 6.7 g/dL (6.0-8.3); Sodium 139 mmol/L (136-145)
[2019-03-16] MEDS: Saccharomyces boulardii 250 MG CAP PO SCH (08:24)
[2019-03-16] MEDS: Enoxaparin Sodium 40 MG/0.4 ML SYRINGE SC SCH (08:24)
[2019-03-16] MEDS: DULoxetine 30 MG CAP PO SCH (08:25)
[2019-03-16] MEDS: Aspirin Chewable 81 MG TAB PO SCH (08:26)
[2019-03-16] MEDS: Potassium Chloride 20 MEQ TAB PO SCH (08:27)
[2019-03-16] MEDS: Furosemide 20 MG TAB PO SCH ×2 (08:28→15:02)
[2019-03-16] MEDS: metFORMIN 500 MG TAB PO SCH ×2 (08:28→15:03)
[2019-03-16] MEDS: Allopurinol 300 MG TAB PO SCH (08:28)
[2019-03-16] MEDS: Isosorbide Mononitrate (ER) 30 MG TAB PO SCH (08:28)
[2019-03-16] MEDS: Morphine 2 MG/ML SYRINGE IVP PRN ×2 (08:34→15:03)
[2019-03-16] MEDS: Lisinopril 20 MG TAB PO SCH (08:39)
[2019-03-16] MEDS: hydrALAZINE 25 MG TAB PO SCH ×3 (08:39→20:47)
--- NOTE | 2019-03-16 10:30 | PDOC.HOSPP ---
- Subjective Encounter Date: 03/16/19 Encounter Time: 07:00 Subjective: buttock pain is easing a bit has not amb much here says 2 other inmates have had cellulitis like him - Objective Vital Signs & Weight: Vital Signs (12 hours) Temp Pulse Resp BP BP Pulse Ox 03/16/19 08:39 61 03/16/19 07:33 98.0 F 61 20 102/56 L 91 L 03/16/19 04:32 98.2 F 67 20 107/55 L 94 L 03/16/19 00:00 99.2 F 87 109/66 92 L Weight Weight 331 lb 9 oz I&O: 03/15/19 03/16/19 03/17/19 06:59 06:59 06:59 Intake Total 2060 Output Total 1350 Balance 710 Result Diagrams: 03/16/19 06:06 03/16/19 06:06 Additional Labs: Accuchecks 03/16/19 03/15/19 03/15/19 04:33 19:00 16:37 POC Glucose 137 H 152 H 95 ROS - Medication Medications: Active Medications Generic Name Dose Route Start Last Admin Trade Name Freq PRN Reason Stop Dose Admin Hydrocodone Bitart/Acetaminophen 1 tab 03/15/19 12:11 03/16/19 06:17 [place] 5/325 PO 1 tab Q4H PRN Administration Moderate Pain (4-6) Allopurinol 300 mg 03/16/19 09:00 03/16/19 08:28 Zyloprim PO 300 mg DAILY AGUSTO Administration Aspirin 81 mg 03/16/19 09:00 03/16/19 08:26 Aspirin Chewable PO 81 mg DAILY AGUSTO Administration Atorvastatin Calcium 40 mg 03/15/19 21:00 03/15/19 20:02 Lipitor PO 40 mg HS AGUSTO Administration Duloxetine HCl 30 mg 03/16/19 09:00 03/16/19 08:25 Cymbalta PO 30 mg DAILY AGUSTO Administration Enoxaparin Sodium 40 mg 03/16/19 09:00 03/16/19 08:24 Lovenox SC 40 mg 0900 AGUSTO Administration Furosemide 40 mg 03/15/19 14:00 03/16/19 08:28 Lasix PO 40 mg 0900,1400 AGUSTO Administration Hydralazine HCl 50 mg 03/15/19 15:00 08/24/19 08:39 Apresoline PO Not Given TID AGUSTO Piperacillin Sod/Tazobactam 100 mls @ 200 mls/hr 03/15/19 18:00 03/16/19 08: 30 Sod 3.375 gm/ Sodium Chloride IVPB 100 mls Q6HR AGUSTO Administration Vancomycin HCl 1.75 gm/ Sodium 500 mls @ 250 mls/hr 03/15/19 22:00 03/16/19 05:24 Chloride IVPB 500 mls Q8HR AGUSTO Administration Isosorbide Mononitrate 30 mg 03/16/19 09:00 03/16/19 08:28 Imdur Er PO 30 mg DAILY AGUSTO Administration Lisinopril 40 mg 03/16/19 09:00 03/16/19 08:39 Zestril PO Not Given DAILY AGUSTO Metformin HCl 500 mg 03/15/19 17:00 03/16/19 08:28 Glucophage PO 500 mg BID-WM AGUSTO Administration Morphine Sulfate 2 mg 03/15/19 12:11 03/16/19 08:34 Morphine IVP 2 mg Q4H PRN Administration Pain Pantoprazole Sodium 40 mg 03/16/19 09:00 03/16/19 08:28 Protonix PO 40 mg DAILY AGUSTO Administration Potassium Chloride 20 meq 03/16/19 08:00 03/16/19 08:27 K-Dur PO 20 meq QAM-WM AGUSTO Administration Saccharomyces Boulardii 250 mg 03/16/19 09:00 03/16/19 08:24 Florastor PO 250 mg DAILY AGUSTO Administration Senna/Docusate Sodium 2 tab 03/15/19 12:11 03/15/19 20:02 Senokot S PO 2 tab BIDPRN PRN Administration Constipation Terazosin HCl 2 mg 03/15/19 21:00 03/15/19 20:08 Hytrin PO 2 mg HS AGUSTO Administration - Exam NAD, awake alert Eye: PERRL, anicteric sclera ENT: no oropharyngeal lesions, moist mucosa Neck: supple, no JVD Heart: RRR, no murmur Respiratory: no wheezes, no rales Gastrointestinal: soft, non-tender, normal bowel sounds Extremities: no edema Extremeties - other findings: right gluteal and post thigh has erythema Neurological: CN's grossly intact, no focal deficits Psychiatric: normal affect, A&O x 3 Hosp A/P (1) Cellulitis Code(s): L03.90 - CELLULITIS, UNSPECIFIED Status: Acute Qualifiers: Site of cellulitis: buttock Qualified Code(s): L03.317 - Cellulitis of buttock (2) HTN (hypertension) Code(s): I10 - ESSENTIAL (PRIMARY) HYPERTENSION Status: Chronic Qualifiers: Hypertension type: essential hypertension Qualified Code(s): I10 - Essential (primary) hypertension (3) CAD (coronary artery disease) Code(s): I25.10 - ATHSCL HEART DISEASE OF [place] CORONARY ARTERY W/O ANG PCTRS Status: Chronic Qualifiers: Coronary Disease-Associated Artery/Lesion type: [place] artery [place] vs. transplanted heart: [place] heart (4) Diabetes mellitus type 2 in obese Code(s): E11.69 - TYPE 2 DIABETES MELLITUS WITH OTHER SPECIFIED COMPLICATION; E66.9 - OBESITY, UNSPECIFIED Status: Chronic (5) Hepatitis C Code(s): B19.20 - UNSPECIFIED VIRAL HEPATITIS C WITHOUT HEPATIC COMA Status: Chronic Qualifiers: Viral hepatitis chronicity: chronic (6) Paroxysmal atrial fibrillation Code(s): I48.0 - PAROXYSMAL ATRIAL FIBRILLATION Status: Chronic - Plan has cellulitis of buttock and post thigh area on right side has h/o hep C is on vanc and zosyn continue asp, lipitor, metformin, lasix, hydralazine, imdur, lisinopril and allopurinol hemostable will get opinion No signs of necrotizing fasciitis
[2019-03-16 13:33] LABS: Vancomycin, Trough 24.4 ug/mL
[2019-03-16] MEDS: Vancomycin HCl 1.5 GM in Sodium Chloride 0.9% 250 ML 300 ML IVPB SCH ×2 (15:03→21:32)
[2019-03-16] MEDS: Terazosin HCl 1 MG CAP PO SCH (20:45)
[2019-03-16] MEDS: Atorvastatin Calcium 40 MG TAB PO SCH (20:54)
[2019-03-17] MEDS: Acetaminophen 325 MG TAB PO PRN (04:06)
[2019-03-17] MEDS: Piperacillin/Tazobactam 3.375 GM in Sodium Chloride 0.9% 100 ML IVPB SCH ×2 (05:01→08:17)
[2019-03-17 05:49] LABS: Anion Gap 15 mmol/L (10-20); BUN (Urea Nitrogen) 10 mg/dL (8.9-20.6); Calc. Creatinine Clearance 213 mL/min (70-130); Carbon Dioxide 24 mmol/L (22-29); Chloride 104 mmol/L (98-107); Estimated GFR-MDRD 89; Glucose 130 mg/dL (70-105); Potassium 3.7 mmol/L (3.5-5.1); Sodium 139 mmol/L (136-145)
[2019-03-17] MEDS: Vancomycin HCl 1.5 GM in Sodium Chloride 0.9% 250 ML 300 ML IVPB SCH ×3 (06:04→20:57)
[2019-03-17] MEDS: DULoxetine 30 MG CAP PO SCH (08:13)
[2019-03-17] MEDS: Lisinopril 20 MG TAB PO SCH (08:14)
[2019-03-17] MEDS: HYDROcodone/Acetaminophen 5/325 mg Tablet PO PRN ×2 (08:14→15:38)
[2019-03-17] MEDS: hydrALAZINE 25 MG TAB PO SCH ×3 (08:15→20:55)
[2019-03-17] MEDS: Allopurinol 300 MG TAB PO SCH (08:15)
[2019-03-17] MEDS: Aspirin Chewable 81 MG TAB PO SCH (08:15)
[2019-03-17] MEDS: Potassium Chloride 20 MEQ TAB PO SCH (08:15)
[2019-03-17] MEDS: Saccharomyces boulardii 250 MG CAP PO SCH (08:16)
[2019-03-17] MEDS: Furosemide 20 MG TAB PO SCH ×2 (08:16→15:37)
[2019-03-17] MEDS: metFORMIN 500 MG TAB PO SCH ×2 (08:16→15:38)
[2019-03-17] MEDS: Isosorbide Mononitrate (ER) 30 MG TAB PO SCH (08:16)
[2019-03-17] MEDS: Enoxaparin Sodium 40 MG/0.4 ML SYRINGE SC SCH (08:17)
[2019-03-17] MEDS: Morphine 2 MG/ML SYRINGE IVP PRN ×2 (12:32→18:07)
--- NOTE | 2019-03-17 12:43 | PDOC.HOSPP ---
- Subjective Encounter Date: 03/17/19 Encounter Time: 09:15 Subjective: no pain, had fever of 100 this am with headache is amb in room to restroom and back - Objective Vital Signs & Weight: Vital Signs (12 hours) Temp Pulse Resp BP Pulse Ox 03/17/19 11:43 98.6 F 87 18 130/72 91 L 03/17/19 08:51 98.4 F 88 18 143/84 H 93 L 03/17/19 08:15 96 03/17/19 06:13 98.4 F 03/17/19 04:45 100.9 F H 96 18 142/84 H 92 L Weight Weight 331 lb 9 oz I&O: 03/16/19 03/17/19 03/18/19 06:59 06:59 06:59 Intake Total 2060 3550 Output Total 1350 600 Balance 710 2950 Result Diagrams: 03/16/19 06:06 03/17/19 04:56 Additional Labs: Accuchecks 03/17/19 03/17/19 03/17/19 10:50 07:25 04:36 POC Glucose 112 H 104 116 H 03/16/19 03/16/19 19:47 16:22 POC Glucose 113 H 101 ROS - Medication Medications: Active Medications Generic Name Dose Route Start Last Admin Trade Name Freq PRN Reason Stop Dose Admin Acetaminophen 650 mg 03/15/19 12:11 03/17/19 04:06 Tylenol PO 650 mg Q4H PRN Administration Headache/Fever/Mild Pain (1-3) Hydrocodone Bitart/Acetaminophen 1 tab 03/15/19 12:11 03/17/19 08:14 [place] 5/325 PO 1 tab Q4H PRN Administration Moderate Pain (4-6) Allopurinol 300 mg 03/16/19 09:00 03/17/19 08:15 Zyloprim PO 300 mg DAILY AGUSTO Administration Aspirin 81 mg 03/16/19 09:00 03/17/19 08:15 Aspirin Chewable PO 81 mg DAILY AG[facility]O Administration Atorvastatin Calcium 40 mg 03/15/19 21:00 03/16/19 20:54 Lipitor PO 40 mg HS AGUSTO Administration Calcium Carbonate 1,000 mg 03/15/19 12:11 03/16/19 20:47 Tums PO 1,000 mg Q4H PRN Administration Heartburn or Indigestion Duloxetine HCl 30 mg 03/16/19 09:00 03/17/19 08:13 Cymbalta PO 30 mg DAILY AGUSTO Administration Enoxaparin Sodium 40 mg 03/16/19 09:00 03/17/19 08:17 Lovenox SC 40 mg 0900 AGUSTO Administration Furosemide 40 mg 03/15/19 14:00 03/17/19 08:16 Lasix PO 40 mg 0900,1400 AGUSTO Administration Hydralazine HCl 50 mg 03/15/19 15:00 03/17/19 08:15 Apresoline PO 50 mg TID AGUSTO Administration Piperacillin Sod/Tazobactam 100 mls @ 200 mls/hr 03/15/19 18:00 03/17/19 08: 17 Sod 3.375 gm/ Sodium Chloride IVPB 100 mls Q6HR AGUSTO Administration Vancomycin HCl 1.5 gm/ Sodium 300 mls @ 150 mls/hr 03/16/19 14:00 03/17/19 06 :04 Chloride IVPB 300 mls Q8HR AGUSTO Administration Isosorbide Mononitrate 30 mg 03/16/19 09:00 03/17/19 08:16 Imdur Er PO 30 mg DAILY AG[facility]O Administration Lisinopril 40 mg 03/16/19 09:00 03/17/19 08:14 Zestril PO 40 mg DAILY AG[facility]O Administration Metformin HCl 500 mg 03/15/19 17:00 03/17/19 08:16 Glucophage PO 500 mg BID-WM AGUSTO Administration Morphine Sulfate 2 mg 03/15/19 12:11 03/17/19 12:32 Morphine IVP 2 mg Q4H PRN Administration Pain Ondansetron HCl 4 mg 03/15/19 12:11 03/16/19 16:45 Zofran IVP 4 mg Q6H PRN Administration Nausea/Vomiting Pantoprazole Sodium 40 mg 03/16/19 09:00 03/17/19 08:15 Protonix PO 40 mg DAILY [facility]O Administration Potassium Chloride 20 meq 03/16/19 08:00 03/17/19 08:15 K-Dur PO 20 meq QAM-WM AG[facility] Administration Saccharomyces Boulardii 250 mg 03/16/19 09:00 03/17/19 08:16 Florastor PO 250 mg DAILY [facility] Administration Senna/Docusate Sodium 2 tab 03/15/19 12:11 03/15/19 20:02 Senokot S PO 2 tab BIDPRN PRN Administration Constipation Terazosin HCl 2 mg 03/15/19 21:00 03/16/19 20:45 Hytrin PO 2 mg HS AGUSTO Administration - Exam NAD, awake alert Eye: PERRL, anicteric sclera ENT: no oropharyngeal lesions, moist mucosa Neck: supple, no JVD Heart: RRR, no murmur Respiratory: no wheezes, no rales Gastrointestinal: soft, non-tender, normal bowel sounds Extremities: no cyanosis, no edema Skin - other findings: right gluteal area erythema is receding, no scrotal wounds or tenderness Neurological: CN's grossly intact, no focal deficits Psychiatric: normal affect, A&O x 3 Hosp A/P (1) Cellulitis Code(s): L03.90 - CELLULITIS, UNSPECIFIED Status: Acute Qualifiers: Site of cellulitis: buttock Qualified Code(s): L03.317 - Cellulitis of buttock (2) HTN (hypertension) Code(s): I10 - ESSENTIAL (PRIMARY) HYPERTENSION Status: Chronic Qualifiers: Hypertension type: essential hypertension Qualified Code(s): I10 - Essential (primary) hypertension (3) CAD (coronary artery disease) Code(s): I25.10 - ATHSCL HEART DISEASE OF [place] CORONARY ARTERY W/O ANG PCTRS Status: Chronic Qualifiers: Coronary Disease-Associated Artery/Lesion type: [place] artery [place] vs. transplanted heart: [place] heart (4) Diabetes mellitus type 2 in obese Code(s): E11.69 - TYPE 2 DIABETES MELLITUS WITH OTHER SPECIFIED COMPLICATION; E66.9 - OBESITY, UNSPECIFIED Status: Chronic (5) Hepatitis C Code(s): B19.20 - UNSPECIFIED VIRAL HEPATITIS C WITHOUT HEPATIC COMA Status: Chronic Qualifiers: Viral hepatitis chronicity: chronic (6) Paroxysmal atrial fibrillation Code(s): I48.0 - PAROXYSMAL ATRIAL FIBRILLATION Status: Chronic - Plan has cellulitis of buttock and post thigh area on right side has h/o hep C is on vanc and zosyn continue asp, lipitor, metformin, lasix, hydralazine, imdur, lisinopril and allopurinol hemostable await opinion No signs of necrotizing fasciitis
[2019-03-17 13:33] LABS: Vancomycin, Trough 17.8 ug/mL
[2019-03-17] MEDS: MEROPENEM 1 GM/50 ML 1 GM in Premix Bag 1 BAG IVPB SCH (15:59)
--- NOTE | 2019-03-17 17:09 | CON ---
DATE OF CONSULTATION: 03/17/2019 REASON FOR CONSULTATION: Inflammatory changes skin, right gluteal region/thigh. HISTORY OF PRESENT ILLNESS: A 49-year-old with history of coronary artery disease, atrial fibrillation, type 2 diabetes, and hepatitis C, who had been in the hospital in September 2018 with chest pain. He had a nuclear medicine stress test with no evidence of ischemia. He was discharged on hydralazine, omeprazole, Lipitor, lisinopril, and metformin. This time, he is back from [facility] shelter and reportedly what he describes as a groin sensation of burning and pruritus. He applied some topical cream, but the changes progressed and he developed subjective fever and chills and eventually was brought to this hospital because [facility] was full. Some headaches. No sore throat. No vomiting, hematemesis, melena, or hematochezia. Some constipation. No dyspnea or chest pain. Pain in the lower abdomen mostly on the right side close to the area of skin changes. PAST MEDICAL HISTORY: Obesity, CHF mostly diastolic, atrial fibrillation, type 2 diabetes, GERD, hepatitis C with unknown history of treatment, chronic low back pain, and gout. PAST SURGICAL HISTORY: Left elbow I and D, shoulder repair, knee arthroscopy, and cardiac cath. SOCIAL HISTORY: He is an inmate at [facility]. History of former methamphetamine abuse. No alcoholic beverage use. No smoking history. FAMILY HISTORY: Type 2 diabetes and hypertension. ALLERGIES: DEMEROL. CURRENT MEDICATIONS: 1. Tylenol. 2. Hankamer. 3. Zyloprim. 4. Aspirin. 5. Lipitor. 6. Dulcolax. 7. Tums. 8. Dextrose. 9. Cymbalta. 10. Lovenox. 11. Lasix. 12. Glucagon. 13. Apresoline. 14. Insulin. 15. Lisinopril. 16. Imdur. 17. Imodium. 18. Claritin. 19. Glucophage. 20. Ondansetron. 21. Protonix. 22. Zosyn. 23. Vancomycin. PHYSICAL EXAMINATION: VITAL SIGNS: T-max 100.9 recently and he is now 98.6, blood pressure 130/72, pulse 87, respirations 18, and O2 saturation 91. SKIN: Remarkable for area of circumferential erythema wrapping around from the inner aspect of the right gluteal region and extending towards the lateral posterior medial aspect of the right thigh and groin region. At the center of this, there is an area of blistering superficial. There was another area of blistering close to the right perianal region. No evidence of induration was noted during the examination. No areas of necrosis noted. No lymphadenopathy. HEENT: Ocular movements conjugate. Oral cavity normal. NECK: Supple. LUNGS: Symmetric clear breath sounds. HEART: S1 and S2. Regular rate. No S3 or S4. ABDOMEN: Soft with mild tenderness right lower quadrant. Mild distention. No ascites. No bladder distention. No organomegaly. No joint inflammatory activity noted. Pulses 1+ in dorsalis pedis. No edema. NEURO: Nonfocal including cognitive function. LABORATORY DATA: White cell count 9.8, hemoglobin 15, and platelets 204 with 69 % neutrophils. Sodium 139, creatinine 0.91, and bilirubin 1.4. Other chemistry values within normal limits. Urinalysis essentially normal. Vancomycin trough 17. Two sets of blood cultures thus far no growth. CT of pelvis, which was done with contrast did not show any evidence of abscess. ASSESSMENT: 1. Type 2 diabetes. 2. Coronary artery disease. 3. Inflammatory changes with superficial cellulitis of the right gluteal, groin , and upper thigh area inner aspect. DISCUSSION: There is no evidence of induration to suggest early phlegmon or abscess formation and the imaging study did not show evidence of abscess. There are two areas of blistering. This would indicate possible streptococcal cellulitis in an unusual location. Other than that, gram-negative diana cellulitis is another possibility. Anaerobic cellulitis would be less likely. Switch him to meropenem. Discontinue Zosyn. Continue vancomycin. Monitor progress. Submit swab cultures of the area. Job ID: [id number] [facility]
[2019-03-17] MEDS: Terazosin HCl 1 MG CAP PO SCH (20:55)
[2019-03-17] MEDS: Atorvastatin Calcium 40 MG TAB PO SCH (20:56)
[2019-03-18] MEDS: MEROPENEM 1 GM/50 ML 1 GM in Premix Bag 1 BAG IVPB SCH ×4 (00:07→23:22)
[2019-03-18] MEDS: HYDROcodone/Acetaminophen 5/325 mg Tablet PO PRN ×2 (04:49→09:52)
[2019-03-18] MEDS: Vancomycin HCl 1.5 GM in Sodium Chloride 0.9% 250 ML 300 ML IVPB SCH ×3 (04:50→20:22)
[2019-03-18] MEDS: Morphine 2 MG/ML SYRINGE IVP PRN ×3 (05:40→23:20)
[2019-03-18 06:36] LABS: Anion Gap 13 mmol/L (10-20); BUN (Urea Nitrogen) 7 mg/dL (8.9-20.6); Calc. Creatinine Clearance 246 mL/min (70-130); Calcium 9.1 mg/dL (7.8-10.44); Carbon Dioxide 22 mmol/L (22-29); Chloride 104 mmol/L (98-107); Estimated GFR-MDRD Greater than 90; Glucose 113 mg/dL (70-105); Potassium 3.5 mmol/L (3.5-5.1); Sodium 135 mmol/L (136-145)
[2019-03-18] MEDS: Furosemide 20 MG TAB PO SCH ×2 (08:40→14:30)
[2019-03-18] MEDS: Isosorbide Mononitrate (ER) 30 MG TAB PO SCH (08:40)
[2019-03-18] MEDS: metFORMIN 500 MG TAB PO SCH ×2 (08:41→17:07)
[2019-03-18] MEDS: Potassium Chloride 20 MEQ TAB PO SCH (08:41)
[2019-03-18] MEDS: Aspirin Chewable 81 MG TAB PO SCH (08:41)
[2019-03-18] MEDS: Allopurinol 300 MG TAB PO SCH (08:41)
[2019-03-18] MEDS: DULoxetine 30 MG CAP PO SCH (08:41)
[2019-03-18] MEDS: Saccharomyces boulardii 250 MG CAP PO SCH (08:41)
[2019-03-18] MEDS: hydrALAZINE 25 MG TAB PO SCH ×3 (08:42→20:22)
[2019-03-18] MEDS: Lisinopril 20 MG TAB PO SCH (08:42)
[2019-03-18] MEDS: Enoxaparin Sodium 40 MG/0.4 ML SYRINGE SC SCH (08:42)
[2019-03-18] MEDS ORDERED: Clopidogrel Bisulfate 75 MG TAB ONE (09:55)
--- NOTE | 2019-03-18 10:29 | PDOC.HOSPP ---
- Subjective Encounter Date: 03/18/19 Encounter Time: 09:45 Subjective: pain is better wants to have a shower today eating well, no fever - Objective Vital Signs & Weight: Vital Signs (12 hours) Temp Pulse Resp BP Pulse Ox 03/18/19 08:42 80 03/18/19 07:16 99.0 F 80 16 112/70 94 L 03/18/19 02:23 80 23 H Weight Weight 331 lb 9 oz I&O: 03/17/19 03/18/19 03/19/19 06:59 06:59 06:59 Intake Total 3550 2400 Output Total 600 Balance 2950 2400 Result Diagrams: 03/16/19 06:06 03/18/19 06:04 Additional Labs: Accuchecks 03/18/19 03/17/19 03/17/19 04:03 19:09 15:26 POC Glucose 115 H 102 119 H 03/17/19 10:50 POC Glucose 112 H ROS - Medication Medications: Active Medications Generic Name Dose Route Start Last Admin Trade Name Hernandezq PRN Reason Stop Dose Admin Acetaminophen 650 mg 03/15/19 12:11 03/17/19 04:06 Tylenol PO 650 mg Q4H PRN Administration Headache/Fever/Mild Pain (1-3) Hydrocodone Bitart/Acetaminophen 1 tab 03/15/19 12:11 03/18/19 09:52 [place] 5/325 PO 1 tab Q4H PRN Administration Moderate Pain (4-6) Albuterol/Ipratropium 3 ml 03/17/19 21:04 03/17/19 21:22 Duoneb NEB 3 ml [id number] PRN Administration SOB &/or Wheezing Allopurinol 300 mg 03/16/19 09:00 03/18/19 08:41 Zyloprim PO 300 mg DAILY AGUSTO Administration Aspirin 81 mg 03/16/19 09:00 03/18/19 08:41 Aspirin Chewable PO 81 mg DAILY AGUSTO Administration Atorvastatin Calcium 40 mg 03/15/19 21:00 03/17/19 20:56 Lipitor PO 40 mg HS AGUSTO Administration Calcium Carbonate 1,000 mg 03/15/19 12:11 03/16/19 20:47 Tums PO 1,000 mg Q4H PRN Administration Heartburn or Indigestion Duloxetine HCl 30 mg 03/16/19 09:00 03/18/19 08:41 Cymbalta PO 30 mg DAILY [facility] Administration Enoxaparin Sodium 40 mg 03/16/19 09:00 03/18/19 08:42 Lovenox SC 40 mg 0900 AGUSTO Administration Furosemide 40 mg 03/15/19 14:00 03/18/19 08:40 Lasix PO 40 mg 0900,1400 AGUSTO Administration Hydralazine HCl 50 mg 03/15/19 15:00 03/18/19 08:42 Apresoline PO Not Given TID [facility] Vancomycin HCl 1.5 gm/ Sodium 300 mls @ 150 mls/hr 03/16/19 14:00 03/18/19 04 :50 Chloride IVPB 300 mls Q8HR AGUSTO Administration Meropenem 1 gm/ Device 50 mls @ 100 mls/hr 03/17/19 16:00 03/18/19 08:39 IVPB 50 mls 0800,1600,2359 [facility] Administration Isosorbide Mononitrate 30 mg 03/16/19 09:00 03/18/19 08:40 Imdur Er PO 30 mg DAILY [facility] Administration Lisinopril 40 mg 03/16/19 09:00 03/18/19 08:42 Zestril PO Not Given DAILY [facility] Metformin HCl 500 mg 03/15/19 17:00 03/18/19 08:41 Glucophage PO Not Given BID-WM [facility] Morphine Sulfate 2 mg 03/15/19 12:11 03/18/19 05:40 Morphine IVP 2 mg Q4H PRN Administration Pain Ondansetron HCl 4 mg 03/15/19 12:11 03/16/19 16:45 Zofran IVP 4 mg Q6H PRN Administration Nausea/Vomiting Pantoprazole Sodium 40 mg 03/16/19 09:00 03/18/19 08:41 Protonix PO 40 mg DAILY [facility] Administration Potassium Chloride 20 meq 03/16/19 08:00 03/18/19 08:41 K-Dur PO 20 meq QAM-WM [facility] Administration Saccharomyces Boulardii 250 mg 03/16/19 09:00 03/18/19 08:41 Florastor PO 250 mg DAILY [facility] Administration Senna/Docusate Sodium 2 tab 03/15/19 12:11 03/15/19 20:02 Senokot S PO 2 tab BIDPRN PRN Administration Constipation Terazosin HCl 2 mg 03/15/19 21:00 03/17/19 20:55 Hytrin PO 2 mg HS AGUSTO Administration - Exam NAD, awake alert Eye: PERRL, anicteric sclera ENT: no oropharyngeal lesions, moist mucosa Neck: supple, no JVD Heart: RRR, no murmur Respiratory: no wheezes, no rales Gastrointestinal: soft, non-tender, normal bowel sounds Extremities: no cyanosis, no clubbing Skin - other findings: has skin peeling over cellulitis area in gluteal and thigh right Neurological: CN's grossly intact, no focal deficits Psychiatric: normal affect, A&O x 3 Hosp A/P (1) Cellulitis Code(s): L03.90 - CELLULITIS, UNSPECIFIED Status: Acute Qualifiers: Site of cellulitis: buttock Qualified Code(s): L03.317 - Cellulitis of buttock (2) HTN (hypertension) Code(s): I10 - ESSENTIAL (PRIMARY) HYPERTENSION Status: Chronic Qualifiers: Hypertension type: essential hypertension Qualified Code(s): I10 - Essential (primary) hypertension (3) CAD (coronary artery disease) Code(s): I25.10 - ATHSCL HEART DISEASE OF [place] CORONARY ARTERY W/O ANG PCTRS Status: Chronic Qualifiers: Coronary Disease-Associated Artery/Lesion type: [place] artery [place] vs. transplanted heart: [place] heart (4) Diabetes mellitus type 2 in obese Code(s): E11.69 - TYPE 2 DIABETES MELLITUS WITH OTHER SPECIFIED COMPLICATION; E66.9 - OBESITY, UNSPECIFIED Status: Chronic (5) Hepatitis C Code(s): B19.20 - UNSPECIFIED VIRAL HEPATITIS C WITHOUT HEPATIC COMA Status: Chronic Qualifiers: Viral hepatitis chronicity: chronic (6) Paroxysmal atrial fibrillation Code(s): I48.0 - PAROXYSMAL ATRIAL FIBRILLATION Status: Chronic - Plan has cellulitis of buttock and post thigh area on right side has h/o hep C is on vanc and meropenem continue asp, lipitor, metformin, lasix, hydralazine, imdur, lisinopril and allopurinol hemostable appreciate help No signs of necrotizing fasciitis/focal abscess developing
--- NOTE | 2019-03-18 16:58 | PRG ---
DATE OF SERVICE: 03/18/2019 SUBJECTIVE: Feeling better. Less pain. No respiratory symptoms or abdominal pain. No diarrhea. OBJECTIVE: VITAL SIGNS: T-max 100.9 yesterday at 4:00 a.m., 99.4 more recently. Other vital signs are normal. GENERAL: Awake, alert, oriented. LUNGS: Clear. HEART: S1 and S2. Regular rate. ABDOMEN: Soft, not distended. EXTREMITIES: Right posterior thigh and gluteal region with improvement. Still moderate tenderness, but less swelling and erythema is turning to darker red color with areas of dry flaky skin covering the underlying epidermis. No necrosis. No induration. LABORATORY DATA: White cell count 9.8 from 2 days ago. Creatinine 0.79. Microbiology; cultures with gram-positive cocci clusters and positive rods, currently on meropenem and vancomycin. ASSESSMENT AND DISCUSSION: Type 2 diabetes; coronary artery disease; inflammatory changes; superficial cellulitis of right gluteal, groin, and upper thigh. No evidence of abscess formation. Improvement is clear. Cultures are still finalizing and then hopefully discharge planning for tomorrow on oral antimicrobial therapy for about 2 weeks. Job ID: [id number]
[2019-03-18] MEDS: Atorvastatin Calcium 40 MG TAB PO SCH (20:22)
[2019-03-18] MEDS: Terazosin HCl 1 MG CAP PO SCH (20:22)
[2019-03-19] MEDS: Vancomycin HCl 1.5 GM in Sodium Chloride 0.9% 250 ML 300 ML IVPB SCH ×3 (05:39→22:39)
[2019-03-19] MEDS: HYDROcodone/Acetaminophen 5/325 mg Tablet PO PRN ×2 (05:44→14:24)
[2019-03-19 06:26] LABS: Anion Gap 11 mmol/L (10-20); BUN (Urea Nitrogen) 7 mg/dL (8.9-20.6); Calc. Creatinine Clearance 252 mL/min (70-130); Calcium 9.2 mg/dL (7.8-10.44); Carbon Dioxide 25 mmol/L (22-29); Chloride 103 mmol/L (98-107); Estimated GFR-MDRD Greater than 90; Glucose 95 mg/dL (70-105); Potassium 4.3 mmol/L (3.5-5.1); Sodium 135 mmol/L (136-145)
[2019-03-19] MEDS: MEROPENEM 1 GM/50 ML 1 GM in Premix Bag 1 BAG IVPB SCH ×2 (08:23→16:48)
[2019-03-19] MEDS: Allopurinol 300 MG TAB PO SCH (08:23)
[2019-03-19] MEDS: Furosemide 20 MG TAB PO SCH ×2 (08:23→14:23)
[2019-03-19] MEDS: hydrALAZINE 25 MG TAB PO SCH ×3 (08:24→22:38)
[2019-03-19] MEDS: Saccharomyces boulardii 250 MG CAP PO SCH (08:25)
[2019-03-19] MEDS: Isosorbide Mononitrate (ER) 30 MG TAB PO SCH (08:25)
[2019-03-19] MEDS: Lisinopril 20 MG TAB PO SCH (08:25)
[2019-03-19] MEDS: Aspirin Chewable 81 MG TAB PO SCH (08:25)
[2019-03-19] MEDS: DULoxetine 30 MG CAP PO SCH (08:25)
[2019-03-19] MEDS: Potassium Chloride 20 MEQ TAB PO SCH (08:25)
[2019-03-19] MEDS: metFORMIN 500 MG TAB PO SCH ×2 (08:26→16:48)
[2019-03-19] MEDS: Enoxaparin Sodium 40 MG/0.4 ML SYRINGE SC SCH (08:26)
[2019-03-19 13:17] LABS: Vancomycin, Trough 16.3 ug/mL
[2019-03-19] MEDS: Acetaminophen 325 MG TAB PO PRN (17:44)
[2019-03-19] MEDS: Terazosin HCl 1 MG CAP PO SCH (22:38)
[2019-03-19] MEDS: Atorvastatin Calcium 40 MG TAB PO SCH (22:38)
--- NOTE | 2019-03-19 23:05 | PDOC.HOSPP ---
- Subjective Subjective: Feeling ok. Still has some discomfort in the right buttock area. - Objective Vital Signs & Weight: Vital Signs (12 hours) Temp Pulse Resp BP BP Pulse Ox 03/19/19 22:38 97 133/78 03/19/19 19:02 98.1 F 92 20 133/78 93 L 03/19/19 16:00 99.1 F 87 18 133/71 94 L 03/19/19 14:23 89 Weight Weight 331 lb 9 oz I&O: 03/18/19 03/19/19 03/20/19 06:59 06:59 06:59 Intake Total 2400 1500 1200 Balance 2400 1500 1200 Result Diagrams: 03/16/19 06:06 03/19/19 05:44 Additional Labs: Accuchecks 03/19/19 03/19/19 03/19/19 19:04 15:53 11:08 POC Glucose 123 H 102 90 03/19/19 04:04 POC Glucose 95 Hospitalist ROS - Medication Medications: Active Medications Generic Name Dose Route Start Last Admin Trade Name Hernandezq PRN Reason Stop Dose Admin Acetaminophen 650 mg 03/15/19 12:11 03/19/19 17:44 Tylenol PO 650 mg Q4H PRN Administration Headache/Fever/Mild Pain (1-3) Hydrocodone Bitart/Acetaminophen 1 tab 03/15/19 12:11 03/19/19 14:24 [place] 5/325 PO 1 tab Q4H PRN Administration Moderate Pain (4-6) Albuterol/Ipratropium 3 ml 03/17/19 21:04 03/17/19 21:22 Duoneb NEB 3 ml [id number] PRN Administration SOB &/or Wheezing Allopurinol 300 mg 03/16/19 09:00 03/19/19 08:23 Zyloprim PO 300 mg DAILY AGUSTO Administration Aspirin 81 mg 03/16/19 09:00 03/19/19 08:25 Aspirin Chewable PO 81 mg DAILY [facility]O Administration Atorvastatin Calcium 40 mg 03/15/19 21:00 03/19/19 22:38 Lipitor PO 40 mg HS AGUSTO Administration Calcium Carbonate 1,000 mg 03/15/19 12:11 03/16/19 20:47 Tums PO 1,000 mg Q4H PRN Administration Heartburn or Indigestion Duloxetine HCl 30 mg 03/16/19 09:00 03/19/19 08:25 Cymbalta PO 30 mg DAILY AGUSTO Administration Enoxaparin Sodium 40 mg 03/16/19 09:00 03/19/19 08:26 Lovenox SC 40 mg 0900 AGUSTO Administration Furosemide 40 mg 03/15/19 14:00 03/19/19 14:23 Lasix PO 40 mg 0900,1400 AG[facility]O Administration Hydralazine HCl 50 mg 03/15/19 15:00 03/19/19 22:38 Apresoline PO 50 mg TID AG[facility]O Administration Vancomycin HCl 1.5 gm/ Sodium 300 mls @ 150 mls/hr 03/16/19 14:00 03/19/19 22 :39 Chloride IVPB 300 mls Q8HR AGUSTO Administration Meropenem 1 gm/ Device 50 mls @ 100 mls/hr 03/17/19 16:00 03/19/19 16:48 IVPB 50 mls 0800,1600,2359 [facility]O Administration Isosorbide Mononitrate 30 mg 03/16/19 09:00 03/19/19 08:25 Imdur Er PO 30 mg DAILY [facility] Administration Lisinopril 40 mg 03/16/19 09:00 03/19/19 08:25 Zestril PO 40 mg DAILY [facility] Administration Metformin HCl 500 mg 03/15/19 17:00 03/19/19 16:48 Glucophage PO Not Given BID-WM [facility] Morphine Sulfate 2 mg 03/15/19 12:11 03/18/19 23:20 Morphine IVP 2 mg Q4H PRN Administration Pain Ondansetron HCl 4 mg 03/15/19 12:11 03/16/19 16:45 Zofran IVP 4 mg Q6H PRN Administration Nausea/Vomiting Pantoprazole Sodium 40 mg 03/16/19 09:00 03/19/19 08:25 Protonix PO 40 mg DAILY [facility] Administration Potassium Chloride 20 meq 03/16/19 08:00 03/19/19 08:25 K-Dur PO 20 meq QAM-WM [facility] Administration Saccharomyces Boulardii 250 mg 03/16/19 09:00 03/19/19 08:25 Florastor PO 250 mg DAILY [facility] Administration Senna/Docusate Sodium 2 tab 03/15/19 12:11 03/15/19 20:02 Senokot S PO 2 tab BIDPRN PRN Administration Constipation Terazosin HCl 2 mg 03/15/19 21:00 03/19/19 22:38 Hytrin PO 2 mg HS AGUSTO Administration - Exam General Appearance: NAD, awake alert Heart: RRR, no murmur, no gallops, no rubs, normal peripheral pulses Respiratory: CTAB, no wheezes, no rales, no ronchi, normal chest expansion, no tachypnea, normal percussion Gastrointestinal: soft, non-tender, non-distended, normal bowel sounds, no palpable masses, no hepatomegaly, no splenomegaly, no bruit Skin - other findings: RIght buttock with persistent erythema and calor, TTP. Psychiatric: normal affect, normal behavior, A&O x 3 Hosp A/P (1) Cellulitis Code(s): L03.90 - CELLULITIS, UNSPECIFIED Status: Acute Qualifiers: Site of cellulitis: buttock Qualified Code(s): L03.317 - Cellulitis of buttock (2) HTN (hypertension) Code(s): I10 - ESSENTIAL (PRIMARY) HYPERTENSION Status: Chronic Qualifiers: Hypertension type: essential hypertension Qualified Code(s): I10 - Essential (primary) hypertension (3) CAD (coronary artery disease) Code(s): I25.10 - ATHSCL HEART DISEASE OF [place] CORONARY ARTERY W/O ANG PCTRS Status: Chronic Qualifiers: Coronary Disease-Associated Artery/Lesion type: [place] artery [place] vs. transplanted heart: [place] heart (4) Diabetes mellitus type 2 in obese Code(s): E11.69 - TYPE 2 DIABETES MELLITUS WITH OTHER SPECIFIED COMPLICATION; E66.9 - OBESITY, UNSPECIFIED Status: Chronic (5) Hepatitis C Code(s): B19.20 - UNSPECIFIED VIRAL HEPATITIS C WITHOUT HEPATIC COMA Status: Chronic Qualifiers: Viral hepatitis chronicity: chronic (6) Morbid obesity Code(s): E66.01 - MORBID (SEVERE) OBESITY DUE TO EXCESS CALORIES Status: Acute (7) CATHERINE (obstructive sleep apnea) Code(s): G47.33 - OBSTRUCTIVE SLEEP APNEA (ADULT) (PEDIATRIC) Status: Acute - Plan Patient was doing well. Discussed with Dr. Collins. Planned DC. Prior to DC, patient's nurse reported low grade fever with diaphoresis. Given this and the degree of persistent erythema, will hold on DC and continue IV abx today. Watch fever curve. Anticipate likely DC in am. Dr. Collins recommended Keflex and Doxy for two weeks.
[2019-03-20] MEDS: HYDROcodone/Acetaminophen 5/325 mg Tablet PO PRN ×2 (01:23→08:28)
[2019-03-20] MEDS: MEROPENEM 1 GM/50 ML 1 GM in Premix Bag 1 BAG IVPB SCH ×2 (01:25→08:22)
[2019-03-20] MEDS: Vancomycin HCl 1.5 GM in Sodium Chloride 0.9% 250 ML 300 ML IVPB SCH (06:27)
[2019-03-20 06:28] LABS: Anion Gap 12 mmol/L (10-20); BUN (Urea Nitrogen) 9 mg/dL (8.9-20.6); Calc. Creatinine Clearance 246 mL/min (70-130); Calcium 9.2 mg/dL (7.8-10.44); Carbon Dioxide 26 mmol/L (22-29); Chloride 104 mmol/L (98-107); Estimated GFR-MDRD Greater than 90; Glucose 120 mg/dL (70-105); Potassium 3.6 mmol/L (3.5-5.1); Sodium 138 mmol/L (136-145)
[2019-03-20 07:32] VITALS: TEMP 99.4
[2019-03-20] MEDS: DULoxetine 30 MG CAP PO SCH (08:19)
[2019-03-20] MEDS: Saccharomyces boulardii 250 MG CAP PO SCH (08:19)
[2019-03-20] MEDS: Enoxaparin Sodium 40 MG/0.4 ML SYRINGE SC SCH (08:19)
[2019-03-20] MEDS: Lisinopril 20 MG TAB PO SCH (08:20)
[2019-03-20] MEDS: Potassium Chloride 20 MEQ TAB PO SCH (08:20)
[2019-03-20] MEDS: Aspirin Chewable 81 MG TAB PO SCH (08:20)
[2019-03-20] MEDS: metFORMIN 500 MG TAB PO SCH (08:20)
[2019-03-20] MEDS: hydrALAZINE 25 MG TAB PO SCH (08:21)
[2019-03-20] MEDS: Allopurinol 300 MG TAB PO SCH (08:21)
[2019-03-20] MEDS: Isosorbide Mononitrate (ER) 30 MG TAB PO SCH (08:22)
[2019-03-20] MEDS: Furosemide 20 MG TAB PO SCH (08:22)
[2019-03-20 10:16] VITALS: BP 133/78
--- NOTE | 2019-03-21 10:09 | PQF ---
RAND ROSA VINAYA KUMAR MD [id number] CLINICAL DOCUMENTATION CLARIFICATION FORM: POST DISCHARGE Addendum to original discharge summary date: ____ Late entry note date: __ DATE: 03-21-19 ATTN:Ac Mason Please exercise your independent, professional judgment in responding to the clarification form. Clinical indicators are provided on the bottom of this form for your review Can you please further specify the relationship of Cellulitis to DM? Please check appropriate box(s): [ ] Cellulitis due to Diabetes [ x ] Cellulitis not due to Diabetes [ ] Other diagnosis please specify: [ ] Unable to determine For continuity of documentation, please document condition throughout progress notes and discharge summary. Thank You. CLINICAL INDICATORS: HP 03/[address] Bedolla Cellulitis right upper thigh and groin HP 03/[address] Bedolla patient has underlying diabetes and he has significant tenderness, erythema and warmth PN 03/[address] Garcia has cellulits of buttock and post thigh area on the right side PN 03/[address] Garcia Chronic hepatitis C Laboratory: [id number]=[id number] H (03/19) RISKS: HP Dr. Bedolla- DM type II HP Dr. Bedolla- Morbid Obesity HP Dr. Bedolla- Stasis Dermatitis TREATMENT: SEP 28 -Zosyn IV SEP 28- Vancomycin HCL IV SEP 28- Meropenem IV SEP 28- Metformin 500 mg PO (This form is maintained as a part of the permanent medical record) 2014 [employer] All Rights Reserved Blanca [email or web address] [not provided] MTDD
--- NOTE | 2019-03-21 13:10 | DIS ---
DATE OF ADMISSION: 03/15/2019 DATE OF DISCHARGE: 03/20/2019 DISCHARGE DIAGNOSES: 1. Cellulitis of the right buttock and thigh area. 2. Diabetes mellitus. 3. Hepatitis C. 4. Hypertension. 5. Coronary artery disease. 6. Obesity. 7. Obstructive sleep apnea. HISTORY OF PRESENT ILLNESS: The patient is a 49-year-old male, [facility] inmate, who presented to the emergency department with a complaint of pain, pruritus, and swelling in the right buttock and groin area. The patient was noted to have significant area of cellulitic changes with some blistering of the upper inner thigh area. HOSPITAL COURSE: The patient was admitted to the hospital with cellulitis, and cultures were obtained of the blistered lesions. He was started on broad-spectrum antibiotics. He was seen in consultation by Dr. Collins, who followed up on the cultures, which all remained essentially negative. It was felt the patient would be appropriate for ongoing treatment with oral antibiotics as an outpatient. The patient developed a maximum temperature of 100.8; however, in the 24 hours prior to discharge, his T-max was 99.4. PHYSICAL EXAMINATION: VITAL SIGNS: On the day of discharge, temperature is 99.4, pulse 69, BP is 106/63, and O2 saturation 94% on room air. GENERAL APPEARANCE: Age-appropriate male, in no distress. He is awake, alert, oriented, pleasant, and cooperative. HEART: Regular rate and rhythm. LUNGS: Clear bilaterally. ABDOMEN: Benign. SKIN: His skin exam does reveal some persistent erythema over the right buttock and medial thigh area. DISPOSITION: The patient is discharged back to [facility]. He will be on a diabetic diet per [facility] protocol. He is to offload the right buttock as possible. MEDICATIONS: He will be on: 1. Keflex 500 mg b.i.d. 2. Doxycycline 100 mg b.i.d. 3. [place] q.4 hours p.r.n. 4. He will continue his eyedrops. 5. Nitroglycerin. 6. Lisinopril. 7. Imdur. 8. Lasix. 9. Depakote. 10. Lipitor. 11. Aspirin. 12. Allopurinol. 13. Terazosin. 14. Potassium. 15. Metformin. 16. Hydralazine. 17. Omeprazole. 18. Diltiazem. 19. Duloxetine. FOLLOWUP: At the [facility] and should have followup at the [facility] facility should he have any ongoing problems otherwise. Job ID: [id number]
== END 2019-03-20 11:54 | DRG 603 ==
LOC: ERS 08:58 → T4-B 12:04
PROVIDERS: ADMIT Internal Medicine; ATTEND Internal Medicine
DX: L03.115 Cellulitis of right lower limb (principal); I50.32 Chronic diastolic (congestive) heart failure; Z68.41 Body mass index [BMI] 40.0-44.9, adult; L03.317 Cellulitis of buttock; E66.01 Morbid (severe) obesity due to excess calories; I11.0 Hypertensive heart disease with heart failure; E78.5 Hyperlipidemia, unspecified; I48.0 Paroxysmal atrial fibrillation; K21.9 Gastro-esophageal reflux disease without esophagitis; G89.29 Other chronic pain; M54.9 Dorsalgia, unspecified; F41.9 Anxiety disorder, unspecified; F32.9 Major depressive disorder, single episode, unspecified; G47.33 Obstructive sleep apnea (adult) (pediatric); M10.9 Gout, unspecified; E11.69 Type 2 diabetes mellitus with other specified complication; B19.20 Unspecified viral hepatitis C without hepatic coma; Z88.8 Allergy status to other drugs, medicaments and biological substances; Z79.899 Other long term (current) drug therapy; I25.2 Old myocardial infarction; Z79.84 Long term (current) use of oral hypoglycemic drugs; Z79.82 Long term (current) use of aspirin
CPT/HCPCS: 36415; 36416; 80048; 80053; 80202; 81001; 85025; 87040; 87070; 87205; 94640; 94660; 96365; J1650; J2185; J2270; J2405; J2543; J3370; J3490; J7050; J7620

== ENCOUNTER 2019-12-03 14:38 | Emergency (ER) | payer OTHER ==
[~2019-12-03 14:38] MED LIST: Iopamidol-370 76% 500 ML 1 ML ONE
[2019-12-03] MEDS ORDERED: Ketorolac Tromethamine 30 MG/ML VIAL ONE (15:29)
[2019-12-03] MEDS ORDERED: Morphine 4 MG/ML VIAL ONE (15:29)
[2019-12-03 15:37] LABS: #Eosinphils 0.2 thou/uL (0.0-0.7); #Lymphocytes 2.3 thou/uL (1.20-3.40); #Monocytes 0.9 thou/uL (0.11-0.59); #Neutrophils 3.7 thou/uL (1.40-6.50); %Basophils 0.5 % (0.0-1.0); %Eosinophils 2.6 % (0.0-10.0); %Lymphocytes 31.7 % (21.0-51.0); %Monocytes 12.9 % (0.0-10.0); %Neutrophils 52.3 % (42.0-75.0); Hemoglobin 15.8 g/dL (14.0-18.0); Mean Corpuscular HGB CONC 33.9 g/dL (32.0-36.0); Mean Corpuscular Hemoglobin 31.7 pg (27.0-31.0); Mean Corpuscular Volume 93.6 fL (78.0-98.0); Mean Platelet Volume 8.6 fL (7.4-10.4); Platelet Count 249 thou/uL (130-400); Red Blood Cell (RBC) Count 4.98 mill/uL (4.70-6.10); White Blood Cell (WBC) Count 7.1 thou/uL (4.8-10.8)
[2019-12-03 15:55] LABS: ALT (SGPT) 87 U/L (8-55); AST (SGOT) 50 U/L (5-34); Albumin 4.1 g/dL (3.5-5.0); Alkaline Phosphatase 100 U/L (40-110); Anion Gap 13 mmol/L (10-20); BUN (Urea Nitrogen) 12 mg/dL (8.9-20.6); Bilirubin, Total 0.5 mg/dL (0.2-1.2); Calc. Creatinine Clearance 0 mL/min (70-130); Calcium 9.3 mg/dL (7.8-10.44); Carbon Dioxide 27 mmol/L (22-29); Chloride 105 mmol/L (98-107); Estimated GFR-MDRD Greater than 90; Globulin 3.8 g/dL (2.4-3.5); Glucose 99 mg/dL (70-105); Lipase 16 U/L (8-78); Protein, Total 7.9 g/dL (6.0-8.3); Sodium 141 mmol/L (136-145)
--- NOTE | 2019-12-03 16:04 | ULT ---
Scrotal sonogram with duplex evaluation HISTORY: Scrotal pain. FINDINGS: Right testicle is 4.8 cm in length and left is 4.4 cm. Each has a normal sonographic appear ance with good color and spectral Doppler flow. Small amount of fluid within each side of the scrotum. Diffuse thickening of the scrotal skin. IMPRESSION : No evidence of testicular mass or torsion. Diffuse scrotal skin thickening Very small bilateral hydroceles. Cause is not evident.
[2019-12-03 16:18] LABS: Bilirubin Negative (Negative); Blood, Urine Negative (Negative); Clarity Clear (Clear); Glucose, Urine (Dipstick) Normal (Negative); Leukocyte Negative Leu/uL (Negative); Nitrite Negative (Negative); Protein, Urine (Dipstick) Negative (Neg-Trace); Urobilinogen Normal mg/dL (Less than 2)
[2019-12-03 16:23] LABS: Base Excess-Venous 2.2 mmol/L (-2.0 to 3.0); Bicarbonate (HCO3v) 29.1 mmol/L (22.0-28.0); CO2 Tension (PvCO2) 52.4 mmHg (40.0-50.0); Calcium, Ionized 1.17 mmol/L (See Comments:); Chloride 104 mmol/L (98-107); Hemoglobin - Calc 15.6 g/dL (14.0-18.0); Potassium 3.7 mmol/L (3.5-5.1); Sodium 142 mmol/L (138-145); T. Carbon Dioxide 30.7 mmol/L (22.0-28.0); vO2 Saturation-calc 53.1 % (60.0-85.0)
[2019-12-03] MEDS ORDERED: Clindamycin/D5W 900 mg/50 ml Premix Bag ONE (18:58)
--- NOTE | 2019-12-03 19:10 | CT ---
CT OF THE ABDOMEN AND PELVIS WITH IV CONTRAST: 12/03/19 INDICATIONS: 49-year-old male with pain in the peritoneum and scrotum. Patient reports no fever or vomiting but wi th mild nausea. Chest pain and shortness of breath. Patient is having some difficulty urinating. COMPARISON: CT pelvis with contrast dated 03/15/19 from [facility]. FINDINGS: Within the lung bases are areas of peripheral subpleural ground glass opacity involving both lower lo bes as well as portions of the lingula and right middle lobe. There is a calcified granuloma in the p osterior right lower lobe. There is a course appearance of the liver which may reflect underlying liver disease. The gallbladder is surgically absent. The pancreas and adrenal glands are normal appearing. Spleen demonstrates a ca lcified granuloma. No hydronephrosis is evident. No definite focal renal lesion is evident. No free fluid or enlarged lymph nodes are evident. There is a normal retrocecal appendix. There is mild thickening involving the subcutaneous fat at the lower anterior abdominal wall which is nonspecific and may reflect a mild amount of panniculitis. No enlarged lymph nodes are evident. Ther e is prominent scrotal wall edema and bilateral hydroceles better detailed on a scrotal ultrasound da carole 12/03/19 at 3:43 p.m. No pathologically enlarged inguinal lymph nodes are evident. The bladder is partially decompressed. T he small and large bowel are unopacified and nondistended. No acute osseous abnormality is demonstrated. IMPRESSION: 1. Peripheral subpleural ground glass opacities within both lower lobes are nonspecific. This is a pattern that can be seen with atypical infectious entitIWA such as viral pneumonia. Would recommen d correlation for any symptoms and signs of COVID-19. Certainly this can be caused by other viral inf ections such as influenza. 2. Coarse appearance of the liver may reflect underlying chronic liver disease. No focal hepatic lesion is evident. 3. Findings of prior granulomatous disease. 4. Cholecystectomy. 5. Scrotal wall thickening with bilateral hydroceles suspicious for cellulitis. No enlarged lymp h nodes are evident. 6. Mild reticulation of the lower subcutaneous fat of the anterior abdominal wall may reflect a mild amount of panniculitis. POS:
[2019-12-03] MEDS ORDERED: Morphine 2 MG/ML SYRINGE ONE (19:15)
== END 2019-12-03 20:10 ==
LOC: ERS 14:38
DX: L03.315 Cellulitis of perineum (principal); N49.2 Inflammatory disorders of scrotum; I11.0 Hypertensive heart disease with heart failure; I50.9 Heart failure, unspecified; E11.9 Type 2 diabetes mellitus without complications; K21.9 Gastro-esophageal reflux disease without esophagitis; F31.9 Bipolar disorder, unspecified; I25.2 Old myocardial infarction; E78.5 Hyperlipidemia, unspecified; G47.30 Sleep apnea, unspecified; Z79.82 Long term (current) use of aspirin; Z79.899 Other long term (current) drug therapy
CPT/HCPCS: 51701; 74177; 76870; 80053; 81003; 82330; 82803; 83605; 83690; 85025; 93976; 96365; 96375; 96376; J1885; J2270; J3490; Q9967